=== PATIENT | female | born 1965 | race Caucasian/White ===

== ENCOUNTER 2016-08-25 01:29 | Inpatient (IN) ==
[2016-08-25] MEDS ORDERED: BENADRYL IV ONE (02:34)
[2016-08-25] MEDS ORDERED: SOLU-MEDROL IV ONE (02:34)
[2016-08-25] MEDS ORDERED: SODIUM CHLORIDE 0.9% INJ ONE ×2 (02:34→06:42)
[2016-08-25] MEDS ORDERED: PEPCID IV ONE (02:34)
--- NOTE | 2016-08-25 02:53 | PROVIDER DOCUMENTATION ---
HPI-General Adult - General Chief Complaint: Allergic Reaction Stated Complaint: FACE SWELLING Time Seen by Provider: 08/25/16 02:08 Source: patient Allergies/Adverse Reactions: Patient Allergies Allergy/AdvReac Type Severity Reaction Status Date / Time lisinopril Allergy SWELLING Verified 08/25/16 03:16 Home Medications: Home Medication List Medication Instructions Recorded Confirmed Last Taken Type Lisinopril/Hydrochlorothiazide 1 tab PO DAILY 08/25/16 08/25/16 08/24/16 16:00 History [Lisinopril-Hctz 20-25 mg Tab] Sulfamethoxazole/Trimethoprim 1 each PO BID 08/25/16 08/25/16 08/24/16 20:00 History [Bactrim Ds Tablet] - History of Present Illness -Gen Adult Nature of Presenting Problems: Pt is a 50 y/o F c chief complaint facial swelling that started this evening. Pt states she went to wash her make-up off and noticed her upper lip was swollen. Over the course of the past 4-5 hours that swelling has increased and spread to her bilaterally maxillary regions. She denies any difficulty swallowing or tightness in her throat. Pt has a h/o htn and takes Lisinopril/ HCTZ x 1 year. Pt also recently started Bactrim for tx of an UTI. On arrival, pt is in no distress. Review of Systems - Adult - REVIEW OF SYSTEMS - ADULT Constitutional: reports: no symptoms reported. denies: chills, fatique Eyes: reports: no symptoms reported. denies: blurred vision, double vision Ears, Nose, Mouth & Throat: reports: mouth swelling. denies: ear pain, nose pain, throat pain Cardiovascular: reports: no symptoms reported. denies: chest pain, irregular heart rate Respiratory: reports: no symptoms reported. denies: cough, shortness of breath Gastrointestinal: reports: no symptoms reported. denies: abdominal pain, nausea Genitourinary: reports: no symptoms reported. denies: dysuria, hematuria Musculoskeletal: reports: no symptoms reported. denies: joint pain, joint swelling Integumentary: reports: no symptoms reported. denies: hives, itching, rash Neurological: reports: no symptoms reported. denies: numbness, paresthesia Psychiatric: reports: no symptoms reported. denies: anxiety, emotional problems Endocrine: reports: no symptoms reported. denies: cold intolerance, heat intolerance Hematologic/Lymphatic: reports: no symptoms reported. denies: blood clots, low blood count Allergic/Immunologic: reports: no symptoms reported. denies: allergic reactions , food allergy All Other Systems: Reviewed and Negative Past History - Adult - PAST MEDICAL HISTORY-ADULT Review of Records: reports: Old Records Reviewed, Nursing Assessment Review, Medications Reviewed, Social history reviewed & non-contributory. Major Childhood Illnesses: reports: denies history Cardiovascular: reports: HTN Respiratory: reports: denies history Gastrointestinal: reports: denies history Obstetrical/Gynecological: reports: denies history Genitourinary: reports: denies history Musculoskeletal: reports: denies history Neurological: reports: denies history Endocrine/Immune: reports: denies history Other Conditions: reports: denies history - FAMILY HISTORY Family History: reviewed, not pertinent Physical Exam-General - PHYSICAL EXAM-ADULT Initial Vital Signs Reviewed: Yes - CONSTITUTIONAL General Appearance: alert, mild distress - EYES Eyes: PERRL/EOMI, pink conjunctivae, fundi clear, no AV nicking - HEAD, EARS, NOSE, MOUTH & THROAT HENMT: normocephalic/atraumatic, angioedema (upper lip, maxillary regions) - NECK Neck: non-tender - RESPIRATORY Respiratory: chest non-tender, lungs clear, normal breath sounds - CARDIOVASCULAR Cardiovascular: normal peripheral pulses, regular rate, rhythm, no edema - GASTROINTESTINAL (ABDOMEN) Abdominal Exam: normal bowel sounds, non tender, soft - LYMPHATIC Lymphatic: no adenopathy - MUSCULOSKELETAL Back Exam: normal inspection Extremity: normal range of motion, non-tender - SKIN Integumentary: normal color, normal turgor, warm/dry - NEUROLOGIC Neurologic: grossly normal, no motor/sensory deficits - PSYCHIATRIC Psych/Mental Status: normal mood/affect, normal thought content, normal thought process, oriented x 3 Progress - PLAN OF CARE/RESULTS Progress/Plan/Lab Results: Orders Category Date Time Status Saline Loc NOW Care 08/25/16 02:34 Active CBC WITH ELECTRONIC DIFF [HEME] Stat Lab 08/25/16 02:40 Completed COMPREHENSIVE METABOLIC PANEL [CHEM] Stat Lab 08/25/16 02:40 Completed Diphenhydramine [Benadryl] Med 08/25/16 02:34 Discontinued 25 mg IV NOW ONE Famotidine [Pepcid] Med 08/25/16 02:34 Discontinued 20 mg IV NOW ONE Methylprednisolone Sod Succ [Solu-Medrol] Med 08/25/16 02:34 Discontinued 125 mg IV NOW ONE Sodium Chloride 0.9% Med 08/25/16 02:34 Discontinued 5 - 10 ml INJ NOW ONE Laboratory Tests 08/25/16 08/25/16 02:40 02:40 WBC 4.10 L RBC 4.33 Hgb 13.2 Hct 38.9 MCV 89.8 MCH 30.5 MCHC 33.9 RDW Std Deviation 13.4 Plt Count 231 MPV 10.4 Immature Gran % (Auto) 0.0 Neut % (Auto) 48.9 Lymph % (Auto) 32.9 [place] % (Auto) 10.7 H Eos % (Auto) 6.3 Baso % (Auto) 1.2 H Immature Gran # (Auto) 0.00 Neut # (Auto) 2.00 Lymph # (Auto) 1.35 [place] # (Auto) 0.44 Eos # (Auto) 0.26 Baso # (Auto) 0.05 Sodium 136 Potassium 3.9 Chloride 97 L Carbon Dioxide 26 Anion Gap 13 BUN 12 Creatinine 0.8 Estimated GFR/1.73 m2 > 60 BUN/Creatinine Ratio 15 Glucose 91 Calculated Osmolality 271 Calcium 9.3 Total Bilirubin 0.16 L AST 15 ALT 14 Alkaline Phosphatase 54 Total Protein 7.2 Albumin 4.3 Globulin 2.9 Albumin/Globulin Ratio 1.5 Vital Signs - 24 hr 08/25/16 01:46 Temperature 98.5 F Pulse Rate 64 Respiratory 16 Rate Blood Pressure 106/74 O2 Sat by Pulse 100 Oximetry - CONSULTS/PCP/HOSPITALIST Notification #1 *Consult/PCP/Hospitalist*: Dr. Sanchez (Hospitalist) Time Discussed: 03:48 Reason/Comments: Will admit and see pt in the ER. Departure - Departure Time of Disposition Order: 03:28 DIAGNOSIS: Angioedema Qualifiers: Encounter type: initial encounter Qualified Code(s): T78.3XXA - Angioneurotic edema, initial encounter Disposition: ADMITTED INPATIENT 09 Certified Medical Emergency: Emergent Condition: Stable Referrals: Dillon Man [Primary Care Provider] - Attestation - Physician/ TIM Attestation Patient care was provided by Advanced Practice Provider:: Yes Advanced Practice Provider:: Marco Santoro Advanced Practice Provider documentation review:: The Mid-level provider documentation, treatment plan and medical decision making was reviewed by the physician who agrees with all treatment and medical decision making by the MLP.
[2016-08-25 03:10] LABS: MANUAL DIFF NEEDED? NO
[2016-08-25 03:12] LABS: BASO% 1.2 % (0.0-0.8); EOS# 0.26 X1000 (0.0-0.7); EOS% 6.3 % (0.0-10.0); HEMATOCRIT 38.9 % (37.0-47.0); HEMOGLOBIN 13.2 g/dL (12.0-16.0); LYMPH# 1.35 X1000 (1.2-3.4); LYMPH% 32.9 % (20.5-51.1); MCH 30.5 PG (27-31); MCHC 33.9 g/dL (33-37); MCV 89.8 FL (81-99); MONO# 0.44 X1000 (0.11-0.59); MONO% 10.7 % (1.7-9.3); MPV 10.4 FL (7.4-10.4); NEUT% 48.9 % (42.2-75.2); PLT 231 X1000 (130-400); RBC 4.33 XMIL (4.2-5.4)
[2016-08-25 03:31] LABS: AGAP 13; ALBUMIN 4.3 g/dL (3.5-5.0); ALKALINE PHOSPHATASE 54 U/L (32-104); BUN 12 mg/dL (8-22); CALCIUM 9.3 mg/dL (8.8-10.2); CHLORIDE 97 mmol/L (98-107); COSMO 271; GOT 15 U/L (10-30); GPT 14 U/L (10-36); POTASSIUM 3.9 mmol/L (3.5-5.1); SODIUM 136 mmol/L (136-145); TCO2 26 mmol/L (25-35); TOTAL BILIRUBIN 0.16 mg/dL (0.20-1.00); TOTAL PROTEIN 7.2 g/dL (6.3-8.3)
[2016-08-25] MEDS ORDERED: TYLENOL PO PRN (04:56)
[2016-08-25] MEDS ORDERED: ZOFRAN IV PRN (04:56)
--- NOTE | 2016-08-25 05:47 | HISTORY AND PHYSICAL ---
PRIMARY CARE PHYSICIAN: Dillon Man MD REASON FOR ADMISSION: swelling of the lip and philtrum over the last 8 hours. HISTORY OF PRESENT ILLNESS: Ms. Nikolay Quinn is a 50-year-old lady with past medical history of hypertension, who was given a prescription of Bactrim for presumed UTI a few days ago. While she was cleaning off her makeup, she noticed that the left upper lip was slightly swollen but did not think much of it. Over the course of the next 4 hours, this progressed to the entire upper lip and philtrum and part of the maxilla. It was swollen and slightly tender and this concerned her so she sought care at the ER. The patient denies any dysphonia, dysphagia or dyspnea. She denies any wheezing or cough, abdominal cramping, nausea, or vomiting. No cardiorespiratory, GI, , neurological complaints. No rash or arthralgia. The patient has a history of celiac disease which is well controlled at this point in time. She has no other complaints. REVIEW OF SYSTEMS: Twelve system review is negative. Positive findings per HPI. ALLERGIES: Lisinopril and probably sulfa. HOME MEDICATIONS: Include lisinopril/hydrochlorothiazide 20/25 one tablet daily. SURGICAL HISTORY: Appendectomy and hysterectomy. FAMILY HISTORY: No family history of any autoimmune or a toxic illness. SOCIAL HISTORY: Does not smoke, drink, or use illicit drugs. She is and lives with her spouse. LABORATORY DATA: White count is 4000, hemoglobin 12 and hematocrit 38, platelets 231,000 with no abnormal differential. Chemistry: Complete CMP is totally normal. PHYSICAL EXAMINATION: VITAL SIGNS: Blood pressure is 106/74, heart rate 64, respirations is 16, temperature 98.5, 100% on room air. She is a pleasant middle-aged woman who is not in acute distress. She is A and O x3 with normal mood and affect. HEENT: Head is normocephalic, atraumatic. Eyes, PERRL, EOMI. She is anicteric and not pale. ENT and oropharyngeal exam is notable for swelling of the left upper lip and philtrum with slight puffiness of both maxillary areas. No erythema noted, however. Oropharyngeal exam is entirely normal. No swelling or erythema. No visual central cyanosis noted. NECK: Supple. No JVD or carotid bruit. No thyromegaly. LYMPH NODE: Exam is negative. CHEST: Clear to auscultation. Good air entry to both lung baum. CARDIOVASCULAR: First and second heart sounds heard. No gallops, murmurs, rubs. Rhythm is regular. ABDOMEN: Full, soft without any tenderness, masses or organomegaly. Bowel sounds are normal. EXTREMITIES: No edema, clubbing or cyanosis. Good pulses distally in all extremities. NEUROLOGICAL: Grossly normal. No focal deficits. SKIN: Intact without any breakdown lesions or erythema. MUSCULAR: Exam is grossly normal. 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 Cannot rule out angiotensin converting enzyme inhibitor plus or minus sulfa-induced angioedema. 2. Hypertension. 3. Celiac disease. PLAN: At this time, we will start patient on steroids, H1 and H2 blockers. If this is an KENNETH inhibitor-induced angioedema, the mechanism is probably secondary to bradykinin production. In small studies, transfusion of fresh frozen plasma which contains the angiotensin-converting enzyme has been shown to be helpful in resolution of this type of mechanism of angioedema, i.e., bradykinin. However, I do not feel comfortable proceeding with that type of treatment because of patient's underlying celiac disease, which people who have this condition have 10-15 times the risk of having IgA deficiency, which one has been very cautious in giving blood products which could induce anaphylaxis. C1 esterase inhibitor can be given but due to the fact that this patient has not got severe angioedema, it is not cost effective. However, if the mechanism is due to histamine, then the aforementioned treatment will be very effective. Regardless, patient should discontinued KENNETH inhibitors and consider avoiding sulfa products unless rechallenged under the supervision of an grades 9 thru 12 visiting teacher.
[2016-08-25] MEDS: BENADRYL IV SCH ×3 (06:54→21:55)
[2016-08-25] MEDS: SOLU-MEDROL IV SCH ×3 (06:54→21:55)
[2016-08-25] MEDS: PEPCID IV SCH ×3 (06:54→21:55)
[2016-08-25] MEDS: NS 1,000 ML IV SCH ×4 (06:57→22:03)
[2016-08-25] MEDS: ZYRTEC PO SCH (09:03)
--- NOTE | 2016-08-25 14:49 | PROGRESS NOTE ---
DATE: 08/25/2016 SUBJECTIVE: Today Ms. Quinn referred to be doing okay. She did not have any complaint. Did say she had some swelling in the face, which is a whole lot better than when she came in. OBJECTIVE: Vital Signs: Stable. Blood pressure is 121/74, pulse of 62, respirations 17and temperature 97.7 degrees. Musculoskeletal Exam: Physical examination is unremarkable, except for mild swelling over the left lower part of the face and the upper lip. Tongue is normal. The patient has no swelling and does not feel any suffocation. LABORATORY DATA: Has been reviewed and nothing abnormal. CURRENT MEDICATIONS: 1. Cetirizine. 2. Diphenhydramine. 3. Methylprednisolone. 4. Ondansetron. ASSESSMENT: 1. Angioedema, unclear the etiology, likely due to the KENNETH inhibitor, however patient has also recently been started on sulfa, so it is not clear which of the medications is the culprit. Either way, both of them have been discontinued. 2. Hypertension is stable. The patient is off medication. Blood pressure continued to be stable. We will not start her on any for now. 3. History of celiac disease noted. GENERAL PLAN: The patient is relatively stable. She is currently on steroid. Continues to have some swelling, which according to her is better. We will keep her overnight to make sure that the swelling continues to improve and there is not any airway compromise, and hopefully switch the IV medications to p.o. and get her discharged tomorrow. MTDD
[2016-08-25 15:46] LABS: BASO% 0.1 % (0.0-0.8); HEMATOCRIT 37.5 % (37.0-47.0); HEMOGLOBIN 12.6 g/dL (12.0-16.0); LYMPH# 0.42 X1000 (1.2-3.4); LYMPH% 5.9 % (20.5-51.1); MANUAL DIFF NEEDED? YES; MCH 30.5 PG (27-31); MCHC 33.6 g/dL (33-37); MCV 90.8 FL (81-99); MONO% 1.4 % (1.7-9.3); MPV 10.5 FL (7.4-10.4); NEUT% 92.6 % (42.2-75.2); PLT 237 X1000 (130-400); RBC 4.13 XMIL (4.2-5.4)
[2016-08-25 15:51] LABS: BANDS 2 % (0-1); LYMPHS 6 % (21-51)
[2016-08-25 16:05] LABS: AGAP 14; BUN 7 mg/dL (8-22); CHLORIDE 99 mmol/L (98-107); COSMO 270; POTASSIUM 4.4 mmol/L (3.5-5.1); SODIUM 135 mmol/L (136-145); TCO2 22 mmol/L (25-35)
[2016-08-26] MEDS: BENADRYL IV SCH ×3 (03:26→15:42)
[2016-08-26] MEDS: SOLU-MEDROL IV SCH ×2 (06:15→15:42)
[2016-08-26] MEDS: NS 1,000 ML IV SCH (06:15)
[2016-08-26] MEDS: PEPCID IV SCH (09:16)
[2016-08-26] MEDS: ZYRTEC PO SCH (09:16)
[2016-08-26 15:35] VITALS: BP 120/75
--- NOTE | 2016-08-27 04:13 | DISCHARGE SUMMARY ---
ADMISSION DATE: 08/25/2016 DISCHARGE DATE: 08/26/2016 DISPOSITION: Home. FOLLOWUP: Will be with the patient's PCP, Dr. Lewis. CONSULTATION DURING THIS ADMISSION: None. INVASIVE PROCEDURES DONE DURING THIS ADMISSION: None. ADMISSION DIAGNOSES: 1. Angioedema. 2. Hypertension. 3. Celiac disease. DISCHARGE DIAGNOSES: 1. Angioedema, etiology is unclear, likely due to KENNETH inhibitor versus Bactrim. 2. Hypertension, controlled. 3. History of celiac disease. 4. Mild obesity with a body mass index of 27.5. DISCHARGE MEDICATIONS: 1. Cetirizine. 2. Prednisone 20 mg daily. PRESENTING COMPLAINT: Swelling of lip over 8 hours. HISTORY OF PRESENTING COMPLAINT: Ms. Quinn is a 50-year-old, female who is hypertensive and has been on lisinopril for some time. Recently developed UTI and was also started on Bactrim. According to her, a couple hours before presenting to the emergency department, she started having swelling of the upper lip and the left face which got worse over the hours and she decided to come to the emergency department. Upon presentation, she was evaluated and was deemed to be possible angioedema so she was admitted for further evaluation. HOSPITAL COURSE: The patient did pretty well during the hospital stay. The swelling actually improved. She was treated in a regular fashion with H1 and H2 blockers, as well as steroids. She did remarkably fine. Vitals continued to be stable. Blood pressure was actually controlled so there was no need to put her on any other medication. Today, she is completely asymptomatic. Swelling is resolved. Patient will therefore be discharged. She is going to follow up with her primary care doctor. Lisinopril has been discontinued and Bactrim has been discontinued. The patient's blood pressure is fine so we chose not to start her on any blood pressure medication until she sees her PCP. Today, vitals, blood pressure is 120/75, pulse of 72, respirations are 18, temperature is 98.1 degrees. Physical exam is completely unremarkable and facial swelling is completely resolved. The patient is therefore going to be discharged in a very stable condition. She has been able to tolerate her diet and she will be discharged. Time spent for discharge is 36 minutes. [facility]
[2016-08-27] MEDS ORDERED: PREDNISONE PO SCH (09:00)
== END 2016-08-26 17:24 | disposition home or self-care (01) | DRG 916 ==
LOC: ED 01:29 → 4N 01:30
PROVIDERS: ATTEND Internal Medicine
DX: T78.3XXA Angioneurotic edema, initial encounter (principal); I10 Essential (primary) hypertension; K90.0 Celiac disease; Z79.899 Other long term (current) drug therapy; T46.4X5A Adverse effect of angiotensin-converting-enzyme inhibitors, initial encounter; T37.0X5A Adverse effect of sulfonamides, initial encounter; E66.9 Obesity, unspecified; Z68.27 Body mass index [BMI] 27.0-27.9, adult
CPT/HCPCS: 80048; 80053; 85025; 85651; J1200; J2930; J7030; S0028